=== PATIENT | male | born 1990 | race Caucasian/White ===

== ENCOUNTER 2017-10-29 15:47 | Emergency (ER) | payer SELFPAY ==
[~2017-10-29] VITALS: Ht 195.6 cm; Wt 86.6 kg
[2017-10-29 16:57] VITALS: BP 149/95
== END 2017-10-29 16:58 | disposition home or self-care (01) ==
LOC: ER 15:49
DX: L72.0 Epidermal cyst (principal); F17.200 Nicotine dependence, unspecified, uncomplicated
CPT/HCPCS: A4606; A6402; Z7502; Z7610